=== PATIENT | female | born 1985 | race Two or more races ===

== ENCOUNTER 2020-11-27 10:00 | Inpatient (IN) ==
[2020-11-27] MEDS ORDERED: CITRIC ACID/SODIUM CITRATE 30 ML UDCUP PO ONE (11:29)
[2020-11-27] MEDS ORDERED: FAMOTIDINE 20 MG/2 ML VIAL IV ONE (11:29)
[2020-11-27] MEDS ORDERED: ceFAZolin 2,000 MG/50 ML DUPLEX IV ONE (11:29)
[2020-11-27] MEDS: LACTATED RINGERS 1,000 ML IV SCH ×3 (11:30→23:44)
[2020-11-27 11:46] LABS: Basophils % 0.3 % (0.0-0.8); Eosinophils # 0.1 10*3/uL (0.0-0.87); Eosinophils % 0.8 % (0.00-10.9); Hematocrit 33.1 VOL% (35.7-47.0); Hemoglobin 10.8 GM/DL (12.0-16.0); Immature Granulocytes % 0.8 %; Immature Granulocytes Absolute 0.07 #; Lymphocytes % 21.9 % (21.3-54.2); Mean Corpuscular HGB Conc 32.6 GM/DL (32-36); Mean Corpuscular Volume 78.4 FL (87-102); Mean Platelet Volume 11.3 FL (9.6-12.0); Monocytes % 5.8 % (1.7-12.7); Neutrophils % 70.4 % (38.7-73.9); Platelet Count 253 T/CUMM (130-400); Red Blood Count 4.22 MC/CUMM (3.8-5.5); Red Cell Distribution Width 16.7 % (9.3-17.3)
[2020-11-27 12:06] LABS: Alanine Aminotransferase 23 U/L (13-56); Albumin 2.8 G/DL (3.4-5.0); Alkaline Phosphatase 226 U/L (45-117); Aspartate Amino Transferase 30 U/L (0-37); Bilirubin,Total < 0.39 MG/DL (0.20-1.00); Blood Urea Nitrogen 13 MG/DL (7-18); Calcium 9.5 MG/DL (8.5-10.1); Carbon Dioxide 21 MMOL/L (21-32); Estimated Glom Filtration Rate 125 ML/MIN; Glucose 72 MG/DL (74-106); Osmolality,Calculated 264.4 MOS/KG (273-304); Sodium 133 MMOL/L (136-145); Total Protein 7.6 G/DL (6.4-8.2)
[2020-11-27] MEDS ORDERED: OXYTOCIN 10 UNIT/ML VIAL IM ONE (12:09)
[2020-11-27] MEDS ORDERED: OXYTOCIN/LR 30 UNIT/1,000 ML BAG IV ONE ×2 (12:09→15:30)
[2020-11-27 12:44] LABS: HIV Antigen/Antibody Result Nonreactive (Nonreactive); Hepatitis B Surface Ag Quant < 0.10 Index; Hepatitis B Surface Ag Result Non-Reactive (NonReactive)
[2020-11-27] MEDS ORDERED: KETOROLAC 30 MG/1 ML VIAL ONE ×2 (14:01)
[2020-11-27] MEDS ORDERED: BUPIVACAINE SPINAL 0.75% 2 ML AMP SPINAL ONE ×2 (14:01→14:02)
[2020-11-27] MEDS ORDERED: ONDANSETRON 4 MG/2 ML VIAL ONE ×2 (14:01)
[2020-11-27] MEDS ORDERED: PHENYLEPHRINE 1 MG/10 ML SYRINGE IV ONE (14:06)
[2020-11-27 14:16] LABS: Bacteria,Urine Occasional /HPF (Few); Bilirubin,Urine Negative (Negative); Blood, Urine Negative (Negative); Glucose,Urine (UA) Negative (Negative); Ketones,Urine Negative (Negative); Mucus,Urine Occasional /LPF (Occasional); Nitrite,Urine Negative (Negative); Protein,Urine Negative; RBC,Urine 1 /HPF (0-4); Urine Appearance CLEAR (Clear); Urine Color Yellow (Yellow); Urine Specific Gravity 1.011 (1.001-1.035); Urine Urobilinogen < 2.0 EU/DL (0.2-1.0)
[2020-11-27] MEDS ORDERED: PHENYLEPHRINE 10 MG/1 ML VIAL IV ONE (15:11)
[2020-11-27 15:14] LABS: Cord Arterial Blood HCO3 17.9 MMOL/L
[2020-11-27 15:17] LABS: Cord Venous Blood HCO3 18.4 MMOL/L; Cord Venous Blood PCO2 53.1 MMHG; Cord Venous Blood PO2 < 17
[2020-11-27] MEDS ORDERED: hydrOXYzine HCL 25 MG/1 ML VIAL IM PRN (15:31)
[2020-11-27] MEDS ORDERED: ONDANSETRON 4 MG/2 ML VIAL IV PRN ×2 (15:31→15:46)
[2020-11-27] MEDS ORDERED: HYDROmorphone 2 MG/1 ML VIAL IV PRN (15:31)
[2020-11-27] MEDS ORDERED: diphenhydrAMINE 50 MG/1 ML VIAL IV PRN (15:31)
[2020-11-27] MEDS ORDERED: SIMETHICONE CHEW 80 MG TABLET PO PRN (15:46)
[2020-11-27] MEDS ORDERED: ACETAMINOPHEN 325 MG TABLET PO PRN (15:46)
[2020-11-27] MEDS ORDERED: IBUPROFEN 800 MG TABLET PO PRN (15:46)
[2020-11-27] MEDS ORDERED: MAGNESIUM HYDROXIDE SUSP 30 ML UDCUP PO PRN (15:46)
[2020-11-27] MEDS ORDERED: OXYTOCIN/LR 20 UNIT/1,000 ML BAG IV ONE ×2 (15:46→23:20)
[2020-11-27] MEDS ORDERED: RHO(D) IMMUNE GLOBULIN 300 MCG SYRINGE IM ONE (15:46)
[2020-11-27] MEDS ORDERED: ACETAMINOPHEN 500 MG TABLET PO SCH (16:00)
[2020-11-27] MEDS ORDERED: LACTATED RINGERS 1,000 ML IV SCH (16:00)
[2020-11-27] MEDS ORDERED: KETOROLAC 30 MG/1 ML VIAL IV SCH (21:00)
[2020-11-27] MEDS: KETOROLAC 30 MG/1 ML VIAL IV SCH (23:37)
[2020-11-27] MEDS: ACETAMINOPHEN 500 MG TABLET PO SCH (23:43)
[2020-11-28] MEDS: ACETAMINOPHEN 500 MG TABLET PO SCH ×2 (05:11→17:31)
[2020-11-28] MEDS: KETOROLAC 30 MG/1 ML VIAL IV SCH ×2 (05:12→17:31)
[2020-11-28 06:03] LABS: Basophils % 0.3 % (0.0-0.8); Eosinophils # 0.1 10*3/uL (0.0-0.87); Eosinophils % 0.9 % (0.00-10.9); Hematocrit 26.9 VOL% (35.7-47.0); Immature Granulocytes % 0.4 %; Immature Granulocytes Absolute 0.04 #; Lymphocytes % 18.1 % (21.3-54.2); Mean Corpuscular Volume 79.4 FL (87-102); Mean Platelet Volume 10.4 FL (9.6-12.0); Monocytes % 5.8 % (1.7-12.7); Neutrophils % 74.5 % (38.7-73.9); Platelet Count 207 T/CUMM (130-400); Red Blood Count 3.39 MC/CUMM (3.8-5.5); Red Cell Distribution Width 16.8 % (9.3-17.3); White Blood Count 11.2 T/CUMM (4-12)
[2020-11-28 06:05] LABS: Hemoglobin 8.6 GM/DL (12.0-16.0)
[2020-11-28] MEDS: DOCUSATE SODIUM 100 MG CAPSULE PO SCH ×3 (07:38→21:31)
[2020-11-28] MEDS: MULTIVITAMIN (PRENATAL) TABLET PO SCH (09:41)
[2020-11-28] MEDS: FERROUS SULFATE 325 MG TABLET PO SCH (21:31)
[2020-11-29 08:37] VITALS: BP 105/50
[2020-11-29] MEDS: FERROUS SULFATE 325 MG TABLET PO SCH (08:55)
[2020-11-29] MEDS: DOCUSATE SODIUM 100 MG CAPSULE PO SCH (08:55)
[2020-11-29] MEDS: MULTIVITAMIN (PRENATAL) TABLET PO SCH (08:55)
[2020-11-29] MEDS ORDERED: DIPH/TET/ACEL PERT BOOSTER VACCINE 0.5 ML VIAL IM ONE (12:20)
== END 2020-11-29 12:45 | disposition home or self-care (01) | DRG 787 ==
LOC: N.LD 10:00 → N.OB 22:20
PROVIDERS: ADMIT Obstetrics & Gynecology; ATTEND Obstetrics & Gynecology
PROC: LDCSECT (ICD-10-PCS; 2020-11-27 14:45)